=== PATIENT | female | born 1960 | race Caucasian/White ===

== ENCOUNTER 2025-07-22 09:44 | Outpatient (AMB) | payer MEDICARE, OTHER, SELFPAY ==
--- NOTE | 2025-07-22 09:57 | MHC.OFFVIS ---
Intake Visit Reasons: 6M TREMOR Allergies latex (LATEX) Allergy (Unknown, Verified 07/22/25 10:03) RASH Penicillins (PENICILLINS) Allergy (Unknown, Verified 07/22/25 10:03) HIVES Sulfa (Sulfonamide Antibiotics) (SULFA (SULFONAMIDE ANTIBIOTICS)) Allergy (Unknown, Verified 07/22/25 10:03) HIVES Medication List - Last Reconciled 07/22/25 by Linh Fernandez CNP cholecalciferol (vitamin D3) 50 mcg PO DAILY clonazepam (Klonopin) 0.5 mg PO BID PRN 30 days ezetimibe 10 mg PO DAILY omeprazole 20 mg PO DAILY HPI Comments Details: She had COVID for the 4th time at the end of 06/2025. She was scheduled for hysterectomy in 08/2025. Neck was stable. She did not think symptoms were severe and has decided to hold off on Botox treatment for now. Tremors were stable, clonazepam as needed helps. Tremors could be worse with stress. No functional impairment. No difficulty eating, drinking, or swallowing. Sleep was so-so. Her father passed in 01/2022. Daughter had NM at age 36. DIL had a pacemaker and SZ. Problems with her head turning to the right and head tremor that gets worse if she is nervous and upset since 2009. More bothersome, gets neck discomfort, and hard for her to sleep. Waking 2-3x/during night with numbness in both hands (R>L) beginning in 2014. NCV 2016 showed mild CTS on the left and early CTS on right s/p R carpal tunnel release in 2009. Using meloxicam on rare occasion for joint pains from OA, worse with colder weather. 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 Allergy related FERNANDEZ and sinus pressure. [facility] Medical History (Updated 07/22/25 @ 10:02 by Linh Fernandez CNP) Arthritis Hyperactivity of bladder Panic disorder Anxiety Essential tremor Torticollis Carpal tunnel syndrome Surgical History (Updated 07/22/25 @ 10:02 by Linh Fernandez CNP) Status post total left knee replacement History of bladder surgery Review of Systems Const Denies chills, Denies daytime sleepiness, Reports difficulty sleeping, Denies fatigue, Denies fever(s), Denies frequent falls, Reports headache(s), Denies increased appetite, Denies poor appetite, Denies snoring, Denies weakness, Denies weight gain and Denies weight loss Eyes Denies loss of vision ENT Denies vertigo, Denies dizziness, Reports headache(s) and Reports neck pain Card Denies chest pain at rest, Denies chest pain with activity, Denies syncope, Denies leg edema, Denies palpitations, Denies dyspnea and Denies dyspnea on exertion Resp Denies cough, Denies dyspnea, Denies dyspnea on exertion and Denies snoring GI Denies abdominal pain, Denies constipation, Denies heartburn, Denies diarrhea and Denies nausea Denies urinary frequency, Denies urinary incontinence and Denies urinary urgency Musc Denies abnormal gait, Denies back pain, Denies myalgias, Reports arthralgias, Reports neck pain, Denies numbness and Denies tingling Neuro Denies abnormal gait, Denies vertigo, Denies dizziness, Denies syncope, Denies frequent falls, Reports headache(s), Denies lack of coordination, Denies loss of vision, Denies memory loss, Denies numbness, Denies Other visual disturbances, Denies restless legs, Denies seizure-like activity, Denies tingling, Denies paresthesias, Reports tremor(s) and Denies weakness Psych Denies anxiety, Denies depression, Denies auditory hallucinations, Denies memory loss and Denies visual hallucinations Endo Denies fatigue and Denies palpitations Physical Exam Const Other: General Appearance:? normal, in no acute distress. Heart:? S1, S2 normal, no murmurs. Lungs:? clear anteriorly and posteriorly. Musculoskeletal:? normal. Extremities:? no edema. Psych:? alert, oriented, cognitive function intact, cooperative with exam. Neuro Other: Abnormal Neurological Findings:?5 degree torticollis to the left. Head titubation tremor. Mental Status: alert and oriented X 3. Normal attention, orientation, memory, and affect. Cranial Nerves: Pupils are equal, round, and reactive to light. External ocular muscles are intact. Visual huffman are full, no ptosis. Face is symmetrical, no facial weakness or droop. Facial sensations are normal. Tongue protrudes in midline. Palate elevates symmetrically. Shoulder shrugging is normal Motor Examination: Normal muscle tone, bulk and strength. No atrophy or fasciculations. No drift of the extended upper extremities. DTR 2+. Plantars are flexor. Sensory Exam: Normal light touch, temperature, pinprick, vibration, and joint-position sensations. Rhomberg sign is absent. Coordination: No ataxia. No titubation. Gait Exam: Within normal limits. Cerebellar Signs: [id number] is okay. Extrapyramidal System: Tremor as above. No rigidity with normal facial expressions. No bradykinesia. No bradyphrenia. Normal arm swing and posture. No propulsion or retropulsion. Speech: Normal. Results Reviewed Results Reviewed: NCV/EMG UE 07/04/16 MILD CARPAL TUNNEL SYNDROME ON THE LEFT. NORMAL EMG OF THE LEFT C5-T1 INNERVATED MUSCLES. Discussed Botox for her neck but she wants to hold off. Assessment & Plan Assessment & Plan (1) Torticollis: Code(s): M43.6 - Torticollis Category: Medical Plan: She was not interested in Botox at this time. (2) Essential tremor: Code(s): G25.0 - Essential tremor Category: Medical Plan: Continue clonazepam 0.5mg 1 tablet twice a day as needed for tremor #60 for 30 days. Follow up in 6 months or sooner as needed. Coding Level of Care Code Est Pt Level 4 (74530) Diagnoses Torticollis M43.6 Essential tremor G25.0
--- OUTSIDE RECORDS SUMMARY | 2025-07-22 11:21 | XMS_ITS ---
[facility] Name [facility] Organization Unknown Results Test Name/Text Value Interpretation Date Range Source Color Ur Yellow Normal 4 - [facility] Hgb Ur Ql Negative Normal 4 - [facility] Glucose Ur Ql Negative Normal 4 - [facility] Ketones Ur-mCnc Negative Normal 4 - [facility] pH Ur 8.5 pH Abnormal 4 5 - 8 [facility] Sp Gr Ur 1.015 Normal 4 1.005 - 1.03 [facility] Clarity Ur Slightly Cloudy Abnormal 4 - [facility] Leukocyte esterase Ur Ql Strip Negative Normal 4 - [facility] Nitrite Ur Ql Negative Normal 4 - [facility] Prot Ur Strip-mCnc Negative Normal 4 - [facility] PTH-Intact SerPl-mCnc 32.2 pcg/mL Normal 4 10 - 65 [facility] Urate SerPl-mCnc 3.3 mg/dL Normal 4 2.5 - 7 [facility] Mucous Threads UrnS Ql Micro Normal 4 [facility] Ketones Ur-mCnc Negative Normal 4 - [facility] Nitrite Ur Ql Negative Normal 4 - [facility] Bacteria #/area UrnS HPF Normal 4 [facility] pH Ur 7.0 pH Normal 4 5 - 8 [facility] Leukocyte esterase Ur Ql Strip Negative Normal 4 - [facility] Color Ur Yellow Normal 4 - [facility] Clarity Ur Cloudy Abnormal 4 - [facility] Hgb Ur Ql Large Abnormal 4 - [facility] Prot Ur Strip-mCnc Negative Normal 4 - [facility] WBC #/area UrnS HPF 0.0 /HPF Normal 4 0 - 5 [facility] RBC #/area UrnS HPF >20.0 /HPF Above high normal 4 0 - 2 [facility] Glucose Ur Ql Negative Normal 4 - [facility] Squamous Epithelial, Urine 5.0 /HPF Normal 4 0 - 5 [facility] Sp Gr Ur 1.015 Normal 4 1.005 - 1.03 [facility] BUN SerPl-mCnc 20.0 mg/dL Above high normal 06/08/20 2 4 7 - 17 [facility] Anion Gap SerPl-sCnc 6.0 Normal 4 5 - 14 [facility] eGFRcr SerPlBld CKD-EPI 2020 97.0 mL/min/1.73m2 Normal 4 - [facility] Creat SerPl-mCnc 0.68 mg/dL Normal 4 0.5 - 1 [facility] Chloride SerPl-sCnc 99.0 mmol/L Normal 4 98 - 107 [facility] Potassium SerPl-sCnc 3.9 mmol/L Normal 4 3.5 - 5.1 [facility] BUN/Creat SerPl 29.4 Above high normal 02 4 12 - 20 [facility] CO2 SerPl-sCnc 31.0 mmol/L Normal 4 24 - 32 [facility] Calcium SerPl-mCnc 9.6 mg/dL Normal 4 8.4 - 10.2 [facility] Glucose SerPl-mCnc 95.0 mg/dL Normal 4 70 - 199 [facility] Sodium SerPl-sCnc 136.0 mmol/L Normal 4 135 - 145 [facility] Eosinophil/leuk NFr Bld Auto 2.3 % Normal 4 0 - 6 [facility] Neutrophils # Bld Auto 6.54 K/mcL Normal 4 1.8 - 7.8 [facility] MCV RBC Auto 87.1 FL Normal 4 78 - 100 [facility] MCH RBC Qn Auto 29.0 pcg Normal 4 25 - 33 [facility] Basophils/leuk NFr Bld Auto 0.5 % Normal 4 0 - 2 [facility] Monocytes/leuk NFr Bld Auto 6.5 % Normal 4 2 - 12 [facility] Lymphocytes # Bld Auto 2.07 K/mcL Normal 4 1 - 3.2 [facility] Eosinophil # Bld Auto 0.22 K/mcL Normal 4 0 - 0.5 [facility] RBC # Bld Auto 5.8 M/mcL Above high normal 06/08/20 2 4 4.2 - 5.4 [facility] Hct VFr Bld Auto 50.5 % Above high normal 4 37 - 47 [facility] Hgb Bld-mCnc 16.8 g/dL Above high normal 4 12.5 - 16 [facility] WBC # Bld Auto 9.5 K/mcL Normal 4 4 - 10.5 [facility] MCHC RBC Auto-mCnc 33.3 g/dL Normal 4 32 - 36 [facility] Platelet # Bld Auto 405.0 K/mcL Normal 4 150 - 450 [facility] RDW RBC Auto-Rto 14.6 % Normal 4 12.1 - 16.2 [facility] PMV Bld Auto 9.1 FL Normal 4 7.4 - 11.4 [facility] Neutrophils/leuk NFr Bld Auto 68.7 % Normal 4 44 - 74 [facility] Monocytes # Bld Auto 0.62 K/mcL Normal 4 0 - 0.8 [facility] Lymphocytes/leuk NFr Bld Auto 21.7 % Normal 4 20 - 48 [facility] Basophils # Bld Auto 0.05 K/mcL Normal 4 0 - 0.2 [facility] BILIRUB DIRECT SERPL MCNC 0.0 mg/dL Normal 3 0 - [facility] BILIRUB [facility] MCNC 0.3 mg/dL Normal 3 0.3 - 1 [facility] D DIMER DDU PPP EIA MCNC 336.0 ng/mL DDU Above high normal 3 - 231 [facility] BNP BLD MCNC 9.0 pg/mL Normal 3 0 - 100 [facility] Glomerular filtration rate/1.73 sq M. predicted 100.0 Normal 3 60 - [facility] CALCIUM SERPL MCNC 9.3 mg/dL Normal 3 8.4 - 10.2 [facility] CHLORIDE SERPL SCNC 98.0 mmol/L Normal 3 98 - 107 [facility] POTASSIUM SERPL SCNC 3.7 mmol/L Normal 3 3.5 - 5.1 [facility] ANION GAP SERPL SCNC 11.0 mmol/L Normal 3 5 - 14 [facility] SODIUM SERPL SCNC 135.0 mmol/L Normal 3 135 - 145 [facility] BUN SERPL MCNC 15.0 mg/dL Normal 3 7 - 17 [facility] HCO3 SER SCNC 26.0 mmol/L Normal 3 24 - 32 [facility] CREAT SERPL MCNC 0.6 mg/dL Normal 3 0.5 - 1 [facility] GLUCOSE SERPL MCNC 102.0 mg/dL Normal 3 70 - 199 [facility] LIPASE SERPL CCNC 12.0 U/L Normal 3 11 - 82 [facility] AMYLASE SERPL CCNC 35.0 U/L Normal 3 29 - 103 [facility] LDH SERPL L TO P CCNC 257.0 U/L Above high normal 3 125 - 220 [facility] ALP SERPL-CCNC 72.0 U/L Normal 3 34 - 104 [facility] AST SERPL CCNC 36.0 U/L Normal 3 5 - 40 [facility] ALT SERPL CCNC 24.0 U/L Normal 3 7 - 52 [facility] LYMPHOCYTES NO. BLD AUTO 1.7 K/uL Normal 3 1 - 3.2 [facility] IMMATURE GRANULOCYTE, PERCENT 0.2 % Normal 3 0 - 1 [facility] MONOCYTES NO. BLD AUTO 1.0 K/uL Above high normal 3 0 - 0.8 [facility] WBC NO. BLD AUTO 5.2 K/uL Normal 3 4 - 10.5 [facility] NEUTROPHILS NO. BLD AUTO 2.5 K/uL Normal 3 1.8 - 7.8 [facility] HGB BLD MCNC 16.1 g/dL Above high normal 3 12.5 - 16 [facility] MCHC RBC AUTO MCNC 32.9 g/dL Normal 3 32 - 36 [facility] IMMATURE GRANULOCYTE, ABSOLUTE 0.01 k/uL Normal 3 - 0.1 [facility] EOSINOPHIL NFR BLD AUTO 0.4 % Normal 3 0 - 6 [facility] PLATELET NO. BLD AUTO 361.0 K/uL Normal 3 150 - 450 [facility] MCH RBC QN AUTO 28.9 pg Normal 3 25 - 33 [facility] PMV BLD AUTO 9.3 fL Normal 3 7.4 - 11.4 [facility] RBC NO. BLD AUTO 5.57 M/uL Above high normal 3 4.2 - 5.4 [facility] HCT VFR BLD AUTO 48.9 % Above high normal 3 37 - 47 [facility] EOSINOPHIL NO. BLD AUTO 0.0 K/uL Normal 3 0 - 0.5 [facility] BASOPHILS IN BLOOD BY AUTOMATED COUNT 0.0 K/uL Normal 3 0 - 0.2 [facility] NUCLEATED RBC 0.0 % Normal 3 0 - 1 [facility] LYMPHOCYTES NFR BLD AUTO 32.9 % Normal 3 20 - 48 [facility] MCV RBC AUTO 87.8 fL Normal 3 78 - 100 [facility] RDW RBC AUTO RTO 15.1 % Normal 3 12.1 - 16.2 [facility] BASOPHILS NFR BLD AUTO 0.4 % Normal 3 0 - 2 [facility] NEUTROPHILS NFR BLD AUTO 47.0 % Normal 3 44 - 74 [facility] MONOCYTES NFR BLD AUTO 19.1 % Above high normal 3 2 - 12 [facility] Service [facility] XXX-Imp Cepheid GeneXpert (RT-PCR) [facility] Normal 3 [facility] RSV RNA Nph Ql BHAKTI+non-probe NEGATIVE Normal 3 [facility] FLUAV RNA Nph Ql BHAKTI+non-probe POSITIVE Abnormal 3 [facility] FLUBV RNA Nph Ql BHAKTI+non-probe NEGATIVE Normal 3 [facility] SPECIMEN SOURCE XXX NASOPHARYNGEAL Normal 3 [facility] Procalcitonin SerPl IA-mCnc 0.05 ng/mL Above high normal 3 - 0.05 [facility] BNP BLD MCNC 24.0 pg/mL Normal 3 0 - 100 [facility] NEUTROPHILS NO. BLD AUTO 6.7 K/uL Normal 3 1.8 - 7.8 [facility] EOSINOPHIL NO. BLD AUTO 0.2 K/uL Normal 3 0 - 0.5 [facility] PLATELET NO. BLD AUTO 415.0 K/uL Normal 3 150 - 450 [facility] LYMPHOCYTES NFR BLD AUTO 25.9 % Normal 3 20 - 48 [facility] IMMATURE GRANULOCYTE, ABSOLUTE 0.04 k/uL Normal 3 - 0.1 [facility] EOSINOPHIL NFR BLD AUTO 1.8 % Normal 3 0 - 6 [facility] RDW RBC AUTO RTO 16.1 % Normal 3 12.1 - 16.2 [facility] HCT VFR BLD AUTO 47.5 % Above high normal 3 37 - 47 [facility] BASOPHILS NFR BLD AUTO 0.5 % Normal 3 0 - 2 [facility] RBC NO. BLD AUTO 5.43 M/uL Above high normal 3 4.2 - 5.4 [facility] LYMPHOCYTES NO. BLD AUTO 2.7 K/uL Normal 3 1 - 3.2 [facility] NUCLEATED RBC 0.0 % Normal 3 0 - 1 [facility] NEUTROPHILS NFR BLD AUTO 63.2 % Normal 3 44 - 74 [facility] MCHC RBC AUTO MCNC 32.6 g/dL Normal 3 32 - 36 [facility] MONOCYTES NFR BLD AUTO 8.2 % Normal 3 2 - 12 [facility] WBC NO. BLD AUTO 10.5 K/uL Normal 3 4 - 10.5 [facility] BASOPHILS IN BLOOD BY AUTOMATED COUNT 0.1 K/uL Normal 3 0 - 0.2 [facility] MCV RBC AUTO 87.5 fL Normal 3 78 - 100 [facility] IMMATURE GRANULOCYTE, PERCENT 0.4 % Normal 3 0 - 1 [facility] MONOCYTES NO. BLD AUTO 0.9 K/uL Above high normal 3 0 - 0.8 [facility] MCH RBC QN AUTO 28.5 pg Normal 3 25 - 33 [facility] PMV BLD AUTO 8.8 fL Normal 3 7.4 - 11.4 [facility] HGB BLD MCNC 15.5 g/dL Normal 3 12.5 - 16 [facility] CHLORIDE SERPL SCNC 104.0 mmol/L Normal 3 98 - 107 [facility] GLUCOSE SERPL MCNC 107.0 mg/dL Normal 3 70 - 199 [facility] ANION GAP SERPL SCNC 9.0 mmol/L Normal 3 5 - 14 [facility] HCO3 SER SCNC 26.0 mmol/L Normal 3 24 - 32 [facility] POTASSIUM SERPL SCNC 4.4 mmol/L Normal 3 3.5 - 5.1 [facility] BUN SERPL MCNC 20.0 mg/dL Above high normal 07/25/20 2 3 7 - 17 [facility] SODIUM SERPL SCNC 139.0 mmol/L Normal 3 135 - 145 [facility] Glomerular filtration rate/1.73 sq M. predicted 105.0 Normal 3 60 - [facility] CALCIUM SERPL MCNC 10.2 mg/dL Normal 3 8.4 - 10.2 [facility] CREAT SERPL MCNC 0.5 mg/dL Normal 3 0.5 - 1 [facility] D DIMER DDU PPP EIA MCNC 300.0 ng/mL DDU Above high normal 3 - 231 [facility] History of Medication Use Medication Directions Dispensed Refills Start Date End Date Stat celecoxib (CeleBREX) 100 mg capsule Take 1 capsule (100 mg total) by mouth 2 (two) times a day. 01/29/2025 active celecoxib (CeleBREX) 100 mg capsule Take 1 capsule (100 mg total) by mouth 2 (two) times a day. 01/29/2025 active tamsulosin (FLOMAX) 0.4 mg 24 hr capsule Take 1 capsule (0.4 mg total) by mouth 1 (one) time each day. Capsules should be taken 30 minutes following the same meal each day. 01/29/2025 active ezetimibe (ZETIA) 10 mg tablet Take 1 tablet (10 mg total) by mouth 1 (one) time each day. 01/05/2025 active ezetimibe (ZETIA) 10 mg tablet Take 1 tablet (10 mg total) by mouth 1 (one) time each day. 01/05/2025 active vibegron (GEMTESA) 75 mg tablet tablet Take 1 tablet (75 mg total) by mouth 1 (one) time each day. 11/06/2024 active omeprazole (PriLOSEC) [address] capsule Take 1 capsule (20 mg total) by mouth 1 (one) time each day before breakfast. Do not crush or chew. 10/09/2024 active omeprazole (PriLOSEC) [address] capsule Take 1 capsule (20 mg total) by mouth 1 (one) time each day before breakfast. Do not crush or chew. 10/09/2024 active cholecalciferol (VITAMIN D-3) 50 mcg (2,000 unit) capsule Take 1 capsule (2,000 Units total) by mouth 1 (one) time each day. 10/02/2024 active cholecalciferol (VITAMIN D-3) 50 mcg (2,000 unit) capsule Take 1 capsule (2,000 Units total) by mouth 1 (one) time each day. 10/02/2024 active rosuvastatin (CRESTOR) 5 mg tablet Take 1 tablet (5 mg total) by mouth 1 (one) time each day. 10/02/2024 active rosuvastatin (CRESTOR) 5 mg tablet Take 1 tablet (5 mg total) by mouth 1 (one) time each day. 10/02/2024 active vibegron (GEMTESA) 75 mg tablet tablet Take 1 tablet (75 mg total) by mouth 1 (one) time each day. 07/22/2024 5 active varenicline (CHANTIX TOSHIA) 0.5 mg (11)- 1 mg (42) tablet Use as directed on package instructions, try to quit smoking after 1 week. 06/10/2024 active varenicline (CHANTIX TOSHIA) 0.5 mg (11)- 1 mg (42) tablet Use as directed on package instructions, try to quit smoking after 1 week. 06/10/2024 active tamsulosin (FLOMAX) 0.4 mg 24 hr capsule Take 1 capsule (0.4 mg total) by mouth 1 (one) time each day for 14 days. Capsules should be taken 30 minutes following the same meal each day. 06/08/2024 4 active iopamidoL (ISOVUE-370) 370 mg iodine /mL (76 %) injection 100 mL 100 mL, intravenous, Once in imaging, Starting on 06/08/24 at 0711, For 1 dose 06/08/2024 4 completed mometasone (ELOCON) 0.1 % cream Apply to rash on chest twice daily as needed for up to 10 days. 04/29/2024 active omeprazole (PriLOSEC) [address] capsule Take 1 Capsule by mouth daily for 360 days. 01/10/2024 5 active omeprazole (PriLOSEC) [address] capsule Take 1 Capsule by mouth daily for 360 days. 01/10/2024 active rosuvastatin (CRESTOR) 5 mg tablet Take 1 Tablet by mouth daily. 08/27/2023 active rosuvastatin (CRESTOR) 5 mg tablet Take 1 Tablet by mouth daily. 08/27/2023 active albuterol HFA (PROAIR HFA ; PROVENTIL HFA ; VENTOLIN HFA) 90 mcg/actuation inhaler Inhale 2 Puffs into the lungs every 4 hours as needed for Cough or Wheezing. 08/08/2023 active albuterol HFA (PROAIR HFA ; PROVENTIL HFA ; VENTOLIN HFA) 90 mcg/actuation inhaler Inhale 2 Puffs into the lungs every 4 hours as needed for Cough or Wheezing. 08/08/2023 active clonazePAM (KlonoPIN) 0.5 mg tablet TAKE 1 TABLET BY MOUTH TWICE A DAY NEEDED FOR ANXIETY 08/10/2017 active clonazePAM (KlonoPIN) 0.5 mg tablet TAKE 1 TABLET BY MOUTH TWICE A DAY NEEDED FOR ANXIETY 08/10/2017 active meloxicam (MOBIC) 7.5 mg tablet Take 1 Tablet by mouth daily as needed. active TURMERIC ORAL Take 4 drops by mouth 1 (one) time each day. active TURMERIC ORAL Take 4 drops by mouth 1 (one) time each day. active turmeric root extract 500 mg capsule Take by mouth daily. active turmeric root extract 500 mg capsule Take by mouth daily. active Allergies Allergen Reaction Severity Comment Documented Date Source Statu s ROSUVASTATIN PAIN Joint pain 01/20/2025 [facility] ac tive SULFUR 09/04/2024 [facility] active ATORVASTATIN OTHER 09/17/2019 [facility] activ e ADALIMUMAB RASH 07/03/2017 [facility] active MORPHINE SULFATE RASH Nausea and vomiting 02/09/2010 [facility] active NYLON 08/15/2009 [facility] active LATEX 06/26/2008 [facility] active SULFACETAMIDE SODIUM NAUSEA AND VOMITING 11/19/2006 [facility] active PENICILLINS RASH 07/26/2005 [facility] active Problems Problem Status Onset Date Problem Type Date of Resolution Source Shoulder arthritis active 2010-02-18 ProblemAct [facility] Skin growth active 2024-09-04 ProblemAct [facility] BMI 25.0-25.9,adult active 2024-09-04 ProblemAct [facility] Vitamin D deficiency active 2024-09-04 ProblemAct [facility] Hyperlipidemia active 2005-11-29 ProblemAct [facility] Myalgia active 2024-09-04 ProblemAct [facility] Nephrolithiasis active 2024-06-[address] [facility] Panic disorder active 2007-10-19 ProblemAct [facility] Overweight active 2024-09-04 ProblemAct [facility] H Pain in both thighs active 2024-09-04 ProblemAct [facility] Multiple closed fractures of ribs of left side active 2024-09-04 ProblemAct [facility] Tobacco dependency active 2021-12-12 ProblemAct [facility] GERD (gastroesophageal reflux disease) active 2009-04-30 ProblemAct [facility] Encounter for smoking cessation counseling active 2024-09-04 ProblemAct [facility] Erythrocytosis active 2024-06-10 ProblemAct [facility] Liver masses active 2009-04-05 ProblemAct [facility] Menopause active 2024-09-04 ProblemAct [facility] Osteoporosis active 2024-12-15 ProblemAct [facility] Inflammatory arthritis active 2017-02-16 ProblemAct [facility] Trigger finger, acquired active 2024-06-18 ProblemAct [facility] Osteoarthritis of left knee active 2018-11-15 ProblemAct [facility] Carpal tunnel syndrome, left active 2018-04-01 ProblemAct [facility] Urinary frequency active EncounterDiagnosisAct [facility] Urgency of urination active EncounterDiagnosisA ct [facility] Immunizations Vaccine Date Source Lot Number Status Influenza Quadravalent, MDCK , 0.5ml, preservative free (Flucelvax) 6mo and older 06/02/2019 [facility] [id number] completed Influenza Quadravalent, MDCK , 0.5ml, preservative free (Flucelvax) 6mo and older 07/03/2018 [facility] 1433 80 completed Pneumococcal polysaccharide 23 valent (Pneumovax 23) 2yo and older 07/03/2018 [facility] [id number] com pleted Influenza Quadravalent, MDCK , 0.5ml, with preservative (Flucelvax) 6mo and older 07/12/2017 [facility] [id number] completed Influenza trivalent, 0.5mL, preservative free (Fluarix; FluLaval; Fluzone) ages 6mo and older (Afluria) 3 years and older 06/02/2016 [facility] [id number] completed Influenza trivalent, 0.5mL, preservative free (Fluarix; FluLaval; Fluzone) ages 6mo and older (Afluria) 3 years and older 06/27/2013 [facility] [id number] completed Tdap Tetanus diptheria acell ular pertussis (Boostrix; Adacel) 7yo and older 02/09/2010 [facility] completed PPD Test 11/10/2003 [facility] completed Td Tetanus diptheria (Tdvax) 7yo and older 11/27/1999 [facility] [id number] completed Encounters Encounter Type Encounter Reason Primary Diagnosis Location Date Ambulatory Calculus of kidney Calculus of kidney [facility] 02/26/2025 Ambulatory Calculus of kidney Calculus of kidney [facility] 01/29/2025 Ambulatory Calculus of kidney Calculus of kidney [facility] 11/17/2024 Ambulatory Follow-up Overactive bladder [facility] 11/06/2024 Ambulatory Calculus of kidney Calculus of kidney [facility] 07/22/2024 Ambulatory Calculus of kidney Calculus of kidney [facility] 07/07/2024 Emergency cyst Dysuria [facility] 06/27/2024 Ambulatory Calculus of kidney Calculus of kidney [facility] 06/24/2024 Emergency BLOOD IN URINE [facility] 06/08/2024 Emergency Influenza due to unidentified influenza virus with other respiratory manifestations Influenza due to unidentified influenza virus with other respiratory manifestations [facility] 08/02/2023 Emergency Other chest pain Other chest pain [facility] 07/24/2023 Emergency Acute upper respiratory infection, unspecified Acute upper respiratory infection, unspecified [facility] 04/16/2023 Emergency COVID-19 [facility] 02/18/2023 Care Team Organization Name Specialty Phone Email Start Date End Da te [facility] 06/26/2024 [facility] 06/24/2024 [facility] 06/08/2024 [facility] 06/08/2024 [facility] 08/26/2023 [facility] GERRY FARMER Primary Care 02/1802/18/2023
--- OUTSIDE RECORDS SUMMARY | 2025-07-22 11:22 | XMS_ITS | Clinical Summary ---
Author Organization [facility] Prior to 01/03/[address] [place] [id number] Care Team Providers Care [employer] Name Role Phone Mahamed Ahn MD Primary Care Provider [phone] Allergies Active Allergy Reactions Criticality Noted Date Comments Atorvastatin 09/27/2020 Myalgia and Joint Pain Adalimumab Dermatitis,Rash Low 09/27/2020 Latex 09/27/2020 Morphine Nausea And Vomiting,Dermatitis,Enoc h Low 09/27/2020 Nylon 09/27/2020 Penicillins Dermatitis,Rash Low 09/27/2020 Sulfa Antibiotics Nausea And Vomiting Medications Medication Sig Dispensed Refills Start Date End Date Status clonazePAM (KlonoPIN) 0.25 mg split tablet Take 2 split tablet (0.5 mg total) by mouth 2 (two) times a day as needed for anxiety. 0 Active meloxicam (MOBIC) 7.5 MG tablet Take 7.5 mg by mouth daily. 0 Active rosuvastatin (CRESTOR) tablet 5 mg Take 1 tablet (5 mg total) by mouth daily. 0 Active HYDROcodone-homatropine (Hycodan) 5-1.5 MG/5ML solution Take 5 mL by mouth every 8 (eight) hours as needed (cough). 120 mL 0 08/02/2023 Active ondansetron (ZOFRAN-ODT) 8 MG disintegrating tablet Take 1 tablet (8 mg total) by mouth every 8 (eight) hours as needed for nausea. 20 tablet 0 08/02/2023 Active Active Problems Problem Noted Date Diagnosed Date Hemangioma of liver 12/12/2021 Toxic effect of carbon monoxide, unintentional 0 12/12/2021 Tobacco use disorder 12/12/2021 Thrombocytosis, unspecified 11/21/2021 Shoulder arthritis 10/10/2020 Panic disorder 10/10/2020 Osteoarthritis of left knee 10/10/2020 HLD (hyperlipidemia) 10/10/2020 GERD (gastroesophageal reflux disease) Carpal tunnel syndrome, left 10/10/2020 History of seronegative inflammatory arthritis 0 10/10/2020 Polycythemia, secondary 09/28/2020 Family History Medical History Relation Name Comments No Sig Med Hx Brother Prostate cancer Father Leukemia Maternal Aunt Breast cancer Maternal Grandmother Cancer Mother Breast cancer Sister 1 Yue Lung cancer Sister 2 Kayla Relation Name Status Comments Brother Father Alive Maternal Aunt (Age 34) Maternal Grandmother (Age 80) Br east cancer age 32, in her 80s Mother (Age 55) Cancer inv olving spine Sister 1 Yue Alive Double mastecto my for unilateral breast cancer. Sister 2 Kayla Alive Social History Tobacco Use Types Packs/Day Years Used Date Smoking Tobacco: Some Days Smokeless Tobacco: Never Alcohol Use Standard Drinks/Week Comments No 0 (1 standard drink = 0.6 oz pur e alcohol) Sex and Gender Information Value Date Recorded Sex Assigned at Female 11/09/2020 7:42 PM EDT Gender Identity Female 02/18/2023 11:50 AM EDT Sexual Orientation Not on file Job Start Date Occupation Industry Not on file Not on file Not on file Last Filed Vital Signs Vital Sign Reading Time Taken Comments Blood Pressure 114/62 08/02/2023 8:01 PM EST Pulse 69 08/02/2023 8:01 PM EST Temperature 36.6 C (97.8 F) 08/02/2023 6:45 PM EST Respiratory Rate 18 08/02/2023 8:01 PM EST Oxygen Saturation 96% 08/02/2023 8:01 PM EST Inhaled Oxygen Concentration - - Weight 73.9 kg (163 lb) 08/02/2023 11:45 AM EST Height 170.2 cm (5' 7 ) 08/02/2023 11:45 AM EST Body Mass Index 25.53 08/02/2023 11:45 AM EST Plan of Treatment Health Maintenance Due Date Last Done Comments Hepatitis C Screening 1958 Depression Screening 1970 BMI Counseling 1976 Preventative Health Evaluation 1976 Tobacco Cessation Counseling 1976 Colon Cancer Screening (Colonoscopy) 2003 Breast Cancer Screening (Mammogram) 2008 Shingrix-Zoster Vaccine (1 of 2) 2008 Pneumococcal Vaccine (2 of 2 - PCV) 07/03/2019 07/03/2018 DTap / Tdap / Td (2 - Td or Tdap) 02/10/2020 02/09/2010 Fall Risk Assessment 2023 Osteoporosis Screening (DEXA Scan) 2023 COVID-19 Vaccine ( season) 2025 01/04/2021, 12/14/2020 Influenza Vaccine (#1) 2025 9, 07/03/2018, 07/12/2017, Additional history exists RSV Adult > 60+ Yrs or (1 - 1-dose 75+ series) 2033 Hepatitis B Vaccines Aged Out No long er eligible based on patient's age to complete this topic RSV Ped < 20 months Aged Out No longe r eligible based on patient's age to complete this topic Care Teams Superintendent [employer] Relationship Specialty Start Date End Date Mahamed Ahn MD PCP - General Internal Medicine 09/02/20
--- OUTSIDE RECORDS SUMMARY | 2025-07-22 11:22 | XMS_ITS | Clinical Summary ---
Author Organization 175 [facility] Address [address] [place] [address] Phone Care Team Providers Care Experimental Display Builder Name Role Phone Mahamed Ahn MD Primary Care Provider [phone] Allergies Active Allergy Reactions Criticality Noted Date Comments Adalimumab Rash 07/03/2017 Atorvastatin Other 09/17/2019 Latex 06/26/2008 Morphine Sulfate Rash 02/09/2010 Nausea and vomiting Nylon 08/15/2009 Penicillins Rash 07/26/2005 Rosuvastatin Pain 01/20/2025 Joint pain Sulfacetamide Sodium Nausea And Vomiting 2006 Sulfur 09/04/2024 Medications albuterol HFA (PROAIR HFA ; PROVENTIL HFA ; VENTOLIN HFA) 90 mcg/actuation inhaler Inhale 2 Puffs into the lungs every 4 hours as needed for Cough or Wheezing. 4 Active clonazePAM (KlonoPIN) 0.5 mg tablet TAKE 1 TABLET BY MOUTH TWICE A DAY NEEDED FOR ANXIETY 8 Active omeprazole (PriLOSEC) [address] capsule Take 1 capsule (20 mg total) by mouth 1 (one) time each day before breakfast. Do not crush or chew. 90 capsule 3 5 10/05/19 26 Active TURMERIC ORAL Take 4 drops by mouth 1 (one) time each day. Active CALCIUM-VITAMIN D3-MAGNESIUM ORAL Take by mouth. Activ e varenicline tartrate (CHANTIX TOSHIA) 0.5 mg (11)- 1 mg (42) tablet Use as directed on package instructions, try to quit smoking after 1 week. 53 tablet 3 5 Active varenicline tartrate (CHANTIX TOSHIA) 0.5 mg (11)- 1 mg (42) tablet Take 0.5 mg by mouth 1 (one) time each day for 3 days (days 1-3), THEN 0.5 mg 2 (two) times a day for 4 days (days 4-7), THEN 1 mg 2 (two) times a day for 12 weeks. 53 tablet 1 5 Active ezetimibe (ZETIA) 10 mg tablet Take 1 tablet (10 mg total) by mouth 1 (one) time each day. 90 each 1 5 10/14/19 26 Active ezetimibe (ZETIA) 10 mg tablet Take 1 tablet (10 mg total) by mouth 1 (one) time each day. 90 each 1 5 10/14/19 26 Active cholecalciferol (VITAMIN D-3) 50 mcg (2,000 unit) capsuleIndicati ons:Vitamin D deficiency Take 1 capsule (2,000 Units total) by mouth 1 (one) time each day. 90 each 3 5 04/16/20 26 Active clindamycin (CLEOCIN) 300 mg capsule TAKE 2 CAPSULES BY MOUTH 1 HOUR BEFORE DENTAL APPOINTMENT DIRECTED 5 Active hydrocortisone 2.5 % cream 5 Active nystatin (MYCOSTATIN) cream APPLY TWICE DAILY TO [facility]MARY - WEAN OFF WHEN IMPROVED 5 Active Afrin, oxymetazoline, 0.05 % nasal spray INSTILL 2 SPRAYS INTRANASALLY EVERY 12 HOURS FOR 3 DAYS 5 Active Active Problems Problem Noted Date Diagnosed Date Osteoporosis 12/15/2024 Pain in both thighs 09/04/2024 Vitamin D deficiency 09/04/2024 Multiple closed fractures of ribs of left side 0 09/04/2024 Myalgia 09/04/2024 Trigger finger, acquired 06/18/2024 Nephrolithiasis 06/10/2024 Erythrocytosis 06/10/2024 Tobacco dependency 12/12/2021 Osteoarthritis of left knee 11/15/2018 Overview (05/23/2024): Due to ongoing inflammatory arthritis Carpal tunnel syndrome, left 04/01/2018 Overview (05/23/2024): Mild on nerve conduction studies, June 2016 at 's office Inflammatory arthritis 02/16/2017 Overview (05/23/2024): Left knee. Large effusion - joint fluid with 15,000 WBC. Treated with IA steroids, methotrexate(nausea-stopped), Humira(rash-stopped). Xeljanz 06/22 - stopped in 2016 due to skin infection Xeljanz restarted September 2017 Joint fluid Aug 2016 31,470 WBC, uric acid crystals seen Summer 2019 - afraid to take Xeljanz due to COVID 19 risks Shoulder arthritis 02/18/2010 Overview (05/23/2024): Positive Lyme Western blots with IgM bands 23 & 41 positive but no IgG bands positive, so false positives. Received 3 courses of doxycycline - no response GERD (gastroesophageal reflux disease) 9 Liver masses 04/05/2009 Panic disorder 10/19/2007 Hyperlipidemia 11/29/2005 Resolved Problems Problem Noted Date Diagnosed Date Resolved Date BMI 25.0-25.9,adult 09/04/2024 04/01/20 25 Skin growth 09/04/2024 04/01/2025 Menopause 09/04/2024 04/01/2025 Encounter for smoking cessation counseling 09/04/2024 04/01/2025 Encounters Date Type Department Care Team Description 07/09/2025 9:50 AM EST Office Visit Gastroenterology - [address] [facility] [address] [place] [phone] Iris Nayak PA Gastroesophageal reflux disease with esophagitis without hemorrhage (Primary Dx); Acute superficial gastritis without hemorrhage; Schatzki ring of distal esophagus; NAFLD (nonalcoholic fatty liver disease) 06/23/2025 1:19 PM EST - 06/23/2025 11:59 PM EST Hospital Encounter [facility] CT Scan [address] [place] [address] Encounter for screening for malignant neoplasm of respiratory organs; Nicotine dependence, cigarettes, uncomplicated Discharge Disposition: Home or Self Care 06/23/2025 1:15 PM EST Office Visit Lung Screening Program - [place] [address] [facility] [address] [place] [phone] Della Vinson NP Encounter for screening for malignant neoplasm of lung in current smoker with 30 pack year history or greater (Primary Dx) 05/26/2025 10:30 AM EDT Office Visit Pulmonology - [place] [address] [facility] [address] [place] [address] Laureen Gutierres MD Chronic bronchitis, unspecified chronic bronchitis type (CMS/HCC V24, CMS/HCC V28) (Primary Dx); Family history of lung cancer; Ex-smoker; Lung nodules from Last 3 Months Immunizations Immunization Administration Dates Next Due Influenza Quadravalent, MDCK , 0.5ml, preservative free (Flucelvax) 6mo and older 06/02/2019,07/03/2018 Influenza Quadravalent, MDCK , 0.5ml, with preservative (Flucelvax) 6mo and older 07/12/2017 Influenza trivalent, 0.5mL, preservative free (Fluarix; FluLaval; Fluzone) ages 6mo and older (Afluria) 3 years and older 06/02/2016,06/27/2013 PPD Test 11/10/2003 Pneumococcal polysaccharide 23 valent (Pneumovax 23) 2yo and older 07/03/2018 Td Tetanus diptheria (Tdvax) 7yo and older 11/26 Tdap Tetanus diptheria acell ular pertussis (Boostrix; Adacel) 7yo and older 02/09/2010 Surgical History Surgery Date Site/Laterality Comments KNEE ARTHROSCOPY W/ MENISCAL REPAIR 07/23/2017 Left PROCEDURE:KNEE ARTHROSCOPY W/ MENISCAL REPAIR COLONOSCOPY PROCEDURE:COLONOSCOPY CARPAL TUNNEL RELEASE 2004 Right PROCEDURE:CARPAL TUNNEL RELEASE BREAST LUMPECTOMY 1989 Left PROCEDURE:BREAST LUMPECTOMY APPENDECTOMY PROCEDURE:APPENDECTOMY TOTAL KNEE ARTHROPLASTY 06/2020 Left PROCEDURE:REPLACEMENT TOTAL KNEE APPENDECTOMY age 14 PROCEDURE: HISTORICAL APPENDECTOMY CARPAL TUNNEL RELEASE R, '05 PROCEDURE: HISTORICAL CARPAL TUNNEL REL COLONOSCOPY 03/17/10 PROCEDURE: HISTORICAL COLONOSCOPY; COMMENT: normal; repeat in ten years OTHER SURGICAL HISTORY April 2012 PROCEDURE: LA SURGICAL ARTHROSCOPY SHOULDER LMTD DBRDMT 08/07; COMMENT: Rotator cuff decompression, synovitis found. BREAST BIOPSY Left PROCEDURE: BX BREAST; PERC NEEDLE CORE W/IMAG GUID; COMMENT: lt. breast bx.-benign BREAST LUMPECTOMY Left PROCEDURE: HISTORICAL BREAST LUMPECTOMY; COMMENT: b9 KNEE SURGERY 07/23/2017 Left PROCEDURE: HISTORICAL KNEE SURGERY; COMMENT: Dr Miranda, meniscal repair. Biopsy tissue neg for RA Medical History Medical History Date Comments HLD (hyperlipidemia) DX:HLD (hyp erlipidemia) Panic disorder DX:Panic disorde r GERD (gastroesophageal reflux disease) DX:GERD (gastroesophageal reflux disease) Liver masses DX:Liver masses Shoulder arthritis DX:Shoulder a rthritis Osteoarthritis of left knee DX:O steoarthritis of left knee Carpal tunnel syndrome, left DX: Carpal tunnel syndrome, left Inflammatory arthritis DX:Inflam matory arthritis Other and unspecified hyperlipidemia 11/29/2005 DX:Other and unspecified hyperlipidemia Panic disorder 10/19/2007 DX:Panic disorde r GERD (gastroesophageal reflux disease) 04/30/2009 DX:GERD (gastroesophageal reflux disease) Gout of left knee 08/29/2017 DX:Gout of lef t knee Covid-19 DX:COVID-19 Joint pain Family History Medical History Relation Name Comments No Known Problems Brother No Known Problems Daughter Arthritis Father hip Prostate cancer Father Breast cancer Maternal Grandmother 60s Glaucoma Maternal Grandmother 60s Cancer Mother Colon cancer Mother . Leukemia Mother's Sister Breast cancer Mother's side 1 m cousin 40 cousin Other: ca thyroid Mother's side 2 Aunt Arthritis Paternal Grandmother Breast cancer Sister 1 Yue Cancer Sister 1 Yue bladder, cancer Lung cancer Sister 2 Kayla Breast cancer Sister 3 46 No Known Problems Son Relation Name Status Comments Aunt (Age 34) mother's s ister of Leukemia Brother Alive healthy Daughter Alive Father Prostate CA Maternal Grandmother 60s (Age 80s) B reast CA dx'd age 32 Mother (Age 55) unknown. H x diverticulitis, spinal CA. Mother's Sister (Age 34) Mother's side 1 m cousin 40 Alive Mother's side 2 Paternal Grandmother Sister 1 Yue Alive Double mastecto my for unilateral breast cancer. Sister 2 Kayla Alive Sister 3 46 Alive Yue,breast CA 1 side, had double mastectomy age48 Sister 4 Alive Kayla Lung can cer, smoker Son Alive Social History Tobacco Use Types Packs/Day Years Used Date Smoking Tobacco: Some Days Cigarettes 0.5 48 Started: 1977 Passive Smoke Exposure: Current Smokeless Tobacco: Never Tobacco Cessation:Ready to Q uit: Not Asked; Counseling Given: Not Answered Alcohol Use Standard Drinks/Week Comments No 0 (1 standard drink = 0.6 oz pur e alcohol) Housing Instability Answer Date Recorde d Are you worried that in the next 2 months you may not have stable housing? No 06/17/2024 Food Access & Nutrition Answer Date Rec orded Do you have access to a vari ety of food including fruits and vegetables? Yes 06/17/2024 Health Literacy Answer Date Recorded How often do you need to hav e someone help you when you read instructions, pamphlets, or other written material from your doctor or pharmacy? Never 06/17/2024 Caregiver: How often do you need to have someone help you when you read instructions, pamphlets, or other written material from your doctor or pharmacy? Not on file 06/17/2024 Financial Risk Answer Date Recorded How hard is it for you to pa y for the very basics like food, housing, medical care, and air conditioning / heating? Very hard 06/17/2024 Transportation Answer Date Recorded Has the lack of transportati on kept you from meetings, work, or from getting things needed for daily living? No Has the lack of transportati on kept you from medical appointments or from getting medications? No 06/17/2024 Social Isolation Answer Date Recorded How often do you feel lonely or isolated from th ose around you? Never 06/17/2024 Food Risk Answer Date Recorded Within the past 12 months we worried whether our food would run out before we got money to buy more. Never true 06/17/2024 Within the past 12 months th e food we bought just didn't last and we didn't have money to get more. Never true 06/17/2024 Dependent Care Answer Date Recorded Do you need help finding or paying for care for your loved ones. For example, child psychometrist or elderly care for an older adult? No 06/17/2024 Education Answer Date Recorded Do you think completing more education or training, like finishing a GED, going to college, or learning a trade, would be helpful for you? No 06/17/2024 Employment and Income Answer Date Recor ded During the last four weeks, have you been actively looking for work? No 06/17/2024 Living Situation Answer Date Recorded What is your living situation? Unrecognized valu e 06/17/2024 Comments No Sex and Gender Information Value Date Recorded Sex Assigned at Female 06/26/2024 8:51 AM EST Legal Sex Female 8:37 AM EST Gender Identity Female 06/26/2024 8:51 AM EST Sexual Orientation Straight 06/26/2024 8: 51 AM EST Obstetrics History Para Term AB IAB SAB Ectopic Multiple Livin g Live Births 2 2 2 2 Date Outcome GA Total Labor Labor/2nd/3rd Weight Sex Type Anes PTL Nina A1 A5 Name Clin Term Term Last Filed Vital Signs Vital Sign Reading Time Taken Comments Blood Pressure 115/64 05/26/2025 10:13 AM EDT Pulse 64 05/26/2025 10:13 AM EDT Temperature 36.7 C (98.1 F) 06/23/2025 1:11 PM EST Respiratory Rate 20 02/02/2025 1:02 PM EDT Oxygen Saturation 98% 05/26/2025 10:13 AM EDT Inhaled Oxygen Concentration - - Weight 76 kg (167 lb 9.6 oz) 07/09/2025 9:58 AM EST Height 170.2 cm (5' 7 ) 07/09/2025 9:58 AM EST Body Mass Index 26.25 07/09/2025 9:58 AM EST Plan of Treatment Upcoming Encounters Date Type Department Care Team (Late st Contact Info) Description 08/10/2025 10:00 AM EST Appointment [facility] - [place] [address] [place] [address] 01/01/2026 9:30 AM EDT Office Visit Endocrinology - [place] [address] [place] [phone] Joi Greene PA [address] [place] [address] 03/29/2026 9:50 AM EDT Office Visit Gastroenterology - [address] [facility] [address] [place] [phone] Iris Nayak PA [address] [facility] [address] [place] [address] 05/26/2026 10:00 AM EDT Office Visit Pulmonology - [place] [address] [facility] [address] [place] [phone] Laureen Gutierres MD [address] [place] [phone] Health Maintenance Due Date Last Done Comments Drug Screen 1960 Non-Opioid Controlled Substance Agreement 1960 Hepatitis A Vaccines (1 of 2 - Risk 2-dose series) 1977 RSV Immunization Adult Patients (1 - Risk 50-74 years 1-dose series) 2008 Zoster Vaccines (1 of 2) 2008 Hepatitis B Vaccines (1 of 3 - Risk 3-dose series) 2018 Pneumococcal Vaccine: 50+ Years (2 of 2 - PCV) 07/03/2019 07/03/2018 Medicare Annual Wellness Visit 07/13/2022 Depression Screening 08/06/2024 06/17/2024 COVID-19 Vaccine (3 - season) 2025 01/04/2021, 12/14/2020 Influenza Vaccine (#1) 2025 9, 07/03/2018, 07/12/2017, Additional history exists Social Influencers of Health Screening 06/17/2025 06/17/2024 Hypertension/CHF/CAD Annual BMP Blood Test 01/20/2026 01/20/2025, 01/01/2025, 09/05/2024, Additional history exists Falls Risk Assessment 02/02/2026 02/02/2025, 024 Colorectal Cancer Screening: Colonoscopy 02/15/2026 02/15/2021 Lung Cancer Screening (Low Dose CT) 06/23/2026 06/23/2025 Breast Cancer Screening 01/29/2027 01/30/20, 01/17/2024, 01/17/2024, Additional history exists Cholesterol Screening (Lipid Panel) 01/01/2030 01/01/2025, 09/05/2024, 02/25/2024, Additional history exists DTaP,Tdap,and Td Vaccines (4 - Td or Tdap) 09/11/2034 09/11/2024, 02/09/2010, 11/27/1999 Osteoporosis Screening (Bone Density Screening) 12/12/2034 12/12/2024 Hepatitis C Screening Completed 01/12/2017 HIB Vaccines Aged Out No longer eligi ble based on patient's age to complete this topic HPV Vaccines Aged Out No longer eligi ble based on patient's age to complete this topic IPV Vaccines Aged Out No longer eligi ble based on patient's age to complete this topic MMR Vaccines Aged Out No longer eligi ble based on patient's age to complete this topic Meningococcal ACWY Vaccine Aged Out N o longer eligible based on patient's age to complete this topic Meningococcal B Vaccine Aged Out No l onger eligible based on patient's age to complete this topic RSV Immunization Patients Under 20 months Aged Out No longer eligible based on patient's age to complete this topic Varicella Vaccines Aged Out No longer eligible based on patient's age to complete this topic Procedures Procedure Name Priority Date/Time Associated Diagnosis Comments CT LUNG SCREENING Routine 06/23/2025 1:2 6 PM EST Encounter for screening for malignant neoplasm of respiratory organs Nicotine dependence, cigarettes, uncomplicated MG MAMMO DIGITAL SCREENING W MEKHI BILAT Routine 01/29/2025 10:24 AM EDT Encounter for screening mammogram for breast cancer CREATININE, SERUM Routine 01/20/2025 9:3 4 AM EDT Osteoporosis, unspecified osteoporosis type, unspecified pathological fracture presence LIPID PANEL WITH REFLEX TO DIRECT LDL Routine 01/01/2025 11:22 AM EDT BMI 25.0-25.9,adult Overweight BD BONE DENSITY DXA AXIAL SKELETON Routine 12/12/2024 10:18 AM EDT Osteoporosis screening HM COLONOSCOPY Routine 02/15/2021 HEPATITIS C SCREENING Routine 01/12/2017 from Last 3 Months or Most Recently Relevant to Health Maintenance Results * CT Lung Screening (06/23/2025 1:26 PM EST) Anatomical Region Laterality Modality Chest Computed Tomogra phy 06/29/2025 4:10 PM EST Impressions 06/29/2025 4:24 PM EST Impression: New 5 mm solid left upper lobe nodule, for which a follow-up low-dose CT is recommended in 3 months. Lung-RADS Category: Lung-RADS 3: Probably benign nodule(s). Recommend follow up with Low Dose Chest CT in 6 months. Telerad KORIN ([id number]) -------- FINAL REPORT -------- Dictated By: Olimpia Hobbs Dictated Date: 06/29/2025 16:10 ET Assigned Physician: Olimpia Hobbs Reviewed and Electronically Signed By: Olimpia Hobbs Signed Date: 06/29/2025 16:24 ET Workstation ID: [id number] Transcribed By: Self Edit Transcribed Date: 06/29/2025 16:10 ET Narrative 06/29/2025 4:24 PM EST History: 64 year-old 24 pack-year current smoker, asymptomatic, for lung cancer screening. Comparison: Thoracic CTA 06/23/10 Technique: Helical volumetric imaging of the thorax was performed, using low- dose technique, without IV contrast. DLP: 166.76 mGy/cm CTDIvol: 4.83 mGy CytoLogic VCT Iterative reconstruction technique Findings: Lungs and Airways: Note: A small sliver of both lung bases is excluded from the [id number] due to technologist error. The trachea and central bronchial tree remain patent. A 5 mm solid, noncalcified nodule is new in the left upper lobe (image 50 series 3). Stable nodules include a 3 mm solid right middle lobe nodule (image 177 series 3), a 3 mm subsolid right upper lobe nodule (image 50), and a 2 mm left upper lobe nodule (image 72). Pleura: No pleural or pericardial effusions are seen. Base of neck, mediastinum and heart: The heart is normal in size. Moderate coronary artery calcification is noted. The included portions of the thyroid gland are unremarkable. No thoracic lymphadenopathy is seen. Soft tissues: The overlying soft tissues are unremarkable. Abdomen: This study was performed without contrast and with lower than standard dose. These factors reduce the sensitivity for detection of small lesions in the upper abdomen. No significant abnormality is seen. Procedure Note Olimpia Hobbs MD - 06/29/2025 History: 64 year-old 24 pack-year current smoker, asymptomatic, for lungcancer screening. Comparison: Thoracic CTA 06/23/10 Technique: Helical volumetric imaging of the thorax was performed, usinglow-dose technique, without IV contrast. DLP: 166.76 mGy/cm CTDIvol: 4.83 mGy NitronexT Iterative reconstruction technique Findings: Lungs and Airways: Note: A small sliver of both lung bases is excluded from the [id number]-jlrxhle to technologist error. The trachea and central bronchial tree remain patent. A 5 mm solid, noncalcified nodule is new in the left upper lobe (image 50series 3). Stable nodules include a 3 mm solid right middle lobe nodule (image 177series 3), a 3 mm subsolid right upper lobe nodule (image 50), and a 2 mmleft upper lobe nodule (image 72). Pleura: No pleural or pericardial effusions are seen. Base of neck, mediastinum and heart: The heart is normal in size. Moderatecoronary artery calcification is noted. The included portions of thethyroid gland are unremarkable. No thoracic lymphadenopathy is seen. Soft tissues: The overlying soft tissues are unremarkable. Abdomen: This study was performed without contrast and with lower thanstandard dose. These factors reduce the sensitivity for detection of smalllesions in the upper abdomen. No significant abnormality is seen. IMPRESSION: Impression: New 5 mm solid left upper lobe nodule, for which a follow-up low-dose CTis recommended in 3 months. Lung-RADS Category: Lung-RADS 3: Probably benign nodule(s). Recommendfollow up with Low Dose Chest CT in 6 months. Telerad PA ([id number]) -------- FINAL REPORT -------- Dictated By: Olimpia Hobbs Dictated Date: 06/29/2025 16:10 ET Assigned Physician: Olimpia Hobbs Reviewed and Electronically Signed By: Olimpia Hobbs Signed Date: 06/29/2025 16:24 ET Workstation ID: [id number] Transcribed By: Self Edit Transcribed Date: 06/29/2025 16:10 ET Igor Holbrook MD IMG CT PROCEDURES Final Result * MG Mammo Digital Screening w Mekhi bilat (01/29/2025 10:24 AM EDT) Anatomical Region Laterality Modality Breast Bilateral Mammography 01/29/2025 5:47 PM EDT Impressions 01/29/2025 5:50 PM EDT 1. No mammographic evidence of malignancy 2. Scattered fibroglandular tissue BI-RADS CATEGORY: 2 - BENIGN RECOMMENDATION: Screening bilateral mammogram is recommended in 1 year. Mammo Location: [facility], [address] [place] [address], [id number], . -------- FINAL REPORT -------- Dictated By: Jessica Gonzalez Dictated Date: 01/29/2025 17:47 ET Assigned Physician: Jessica Gonzalez Reviewed and Electronically Signed By: Jessica Gonzalez Signed Date: 01/29/2025 17:50 ET Workstation ID: [id number] Transcribed By: Self Edit Transcribed Date: 01/29/2025 17:47 ET Narrative 01/29/2025 5:50 PM EDT A BILATERAL DIGITAL 3D SCREENING MAMMOGRAPHY HISTORY: Routine screening. Family history of breast cancer in sister. COMPARISON: Multiple priors dating back to 11/12/2020 Technique: Bilateral full field digital mammography (3D) was performed using standard CC and MLO projections CAD was used to evaluate this mammogram. FINDINGS: Right: No suspicious masses, groups of microcalcification or areas of architectural distortion identified. Stable typically benign parenchymal asymmetries. Left: No suspicious masses, groups of microcalcification or areas of architectural distortion identified. Stable typically benign parenchymal asymmetries. BREAST DENSITY: B - There are scattered areas of fibroglandular density. Procedure Note Jessica Gonzalez MD - 01/29/2025 A BILATERAL DIGITAL 3D SCREENING MAMMOGRAPHY HISTORY: Routine screening. Family history of breast cancer in sister. COMPARISON: Multiple priors dating back to 11/12/2020 Technique: Bilateral full field digital mammography (3D) was performedusing standard CC and MLO projections CAD was used to evaluate this mammogram. FINDINGS: Right: No suspicious masses, groups of microcalcification or areas ofarchitectural distortion identified. Stable typically benign parenchymalasymmetries. Left: No suspicious masses, groups of microcalcification or areas ofarchitectural distortion identified. Stable typically benign parenchymalasymmetries. BREAST DENSITY: B - There are scattered areas of fibroglandular density. IMPRESSION: 1. No mammographic evidence of malignancy 2. Scattered fibroglandular tissue BI-RADS CATEGORY: 2 - BENIGN RECOMMENDATION: Screening bilateral mammogram is recommended in 1 year. Mammo Location: [facility], [address] [place] [address], [id number], . -------- FINAL REPORT -------- Dictated By: Jessica Gonzalez Dictated Date: 01/29/2025 17:47 ET Assigned Physician: Jessica Gonzalez Reviewed and Electronically Signed By: Jessica Gonzalez Signed Date: 01/29/2025 17:50 ET Workstation ID: [id number] Transcribed By: Self Edit Transcribed Date: 01/29/2025 17:47 ET Mahamed Ahn MD [facility] [place]ED[place] Final Result * Creatinine, Serum (01/20/2025 9:34 AM EDT) Creatinine 0.68 0.50 - 1.10 mg/dL LAB CHEMISTRY METHOD 01/20/2025 3:31 PM EDT [facility] eGFR 96 >=60 mL/min/1. 73m2 LAB CHEMISTRY METHOD 01/20/2025 3:31 PM EDT [facility] Comment:Calculation based on the Chronic Kidney Disease Epidemiology Collaboration (CKD-EPI) equation refit without adjustment for race. Blood Venous blood specimen / Unknown Venipuncture / Unknown 01/20/2025 9:34 AM EDT 01/20/2025 9:34 AM EDT us Joi LANGLEY LAB BLOOD ORDERABLES Final Result Performing Organization Address City/[facility]/ZIP Co de Phone Number [facility] [address] [place] [address], [place] [phone] * (ABNORMAL) Lipid panel with reflex to direct LDL (01/01/2025 11:22 AM EDT) Cholesterol 196 0 - 200 mg/dL LAB CHEMISTRY METHOD 01/01/2025 1:57 PM EDT [facility] Triglycerides 207(H) 0 - 150 mg/dL LAB CHEMISTRY METHOD 01/01/2025 1:57 PM EDT [facility] HDL 42 >=40 mg/dL LAB CHEMISTRY METHOD 01/01/2025 1:57 PM EDT [facility] LDL Calculated 113(H) 0 - 100 mg/dL LAB CHEMISTRY METHOD 01/01/2025 1:57 PM EDT [facility] VLDL Cholesterol Javier 41.4 mg/dL LAB CHEMISTRY METHOD 01/01/2025 1:57 PM EDT [facility] Non HDL Chol. (LDL+VLDL) 154(H) <145 mg/dL LAB CHEMISTRY METHOD 01/01/2025 1:57 PM EDT [facility] Chol/HDL Ratio 4.7(H) 0.0 - 4.4 LAB CHEMISTRY METHOD 01/01/2025 1:57 PM EDT [facility] Blood Venous blood specimen / Unknown Venipuncture / Unknown 01/01/2025 11:22 AM EDT 01/01/2025 11:22 AM EDT us Mindi Gaston [employer] LAB BLOOD ORDERABLES Final R esult [facility] [address] [place] [address], * BD Bone Density DXA Axial Skeleton (12/12/2024 10:18 AM EDT) Anatomical Region Laterality Modality Wrist, Hip, L-spine Bone Densito metry 12/13/2024 6:46 PM EDT Impressions 12/13/2024 6:47 PM EDT Impression: Osteoporosis by WHO criteria. The [facility] recommends using National Osteoporosis Foundation (NOF) guidelines in treatment decisions related to osteoporosis. NOF guidelines suggest considering treatment for postmenopausal women and men aged 50 or older presenting with the following: History of hip or vertebral fracture. T-score = -2.5 (DXA) at the femoral neck, total hip, or spine, after appropriate evaluation to exclude secondary causes. Low bone mass (T-score between -1.0 and -2.5 at the femoral neck or spine) AND a 10-year probability of a hip fracture = 3% OR a 10-year probability of a major osteoporosis-related fracture = 20% based on the [place]-adapted WHO algorithm Please note that all treatment decisions require clinical judgment and consideration of individual patient factors, including patient preferences, co-morbidities, previous drug use, risk factors not captured in the FRAX model (e.g., frailty, falls, vitamin D deficiency, increased bone turnover, interval significant decline in bone density) and possible under- or over-estimation of fracture risk by FRAX. Optional alternative screening schedule based on jorge Grubbs., [facility] August 24, 2011 for patients with osteopenia (based on hip BMD T-score) is as follows: * advanced osteopenia (T scores -2.00 to -2.49), BMD testing every year * moderate osteopenia (T scores -1.50 to -1.99), BMD testing every 5 years mild osteopenia or normal BMD (T scores -1.50 and higher), BMD testing every 15 years -------- FINAL REPORT -------- Dictated By: Krystal Marcus Dictated Date: 12/13/2024 18:46 ET Assigned Physician: Krystal Marcus Reviewed and Electronically Signed By: Krystal Marcus Signed Date: 12/13/2024 18:47 ET Workstation ID: [id number] Transcribed By: Self Edit Transcribed Date: 12/13/2024 18:46 ET Narrative 12/13/2024 6:47 PM EDT BONE DENSITY (DEXA) Lumbar Spine T-score is -3.7. (SD relative to 20-29 y/o adult) Z-score is -1.9. (SD relative to age matched peers) This is considered osteoporosis by WHO criteria. Left Hip T-score is -3.7. Z-score is -2.1. This is considered osteoporosis by WHO criteria. Comparison exam(s): Not available. Procedure Note Krystal Marcus MD - 12/13/2024 BONE DENSITY (DEXA) Lumbar Spine T-score is -3.7. (SD relative to 20-29 y/o adult) Z-score is -1.9. (SD relative to age matched peers) This is considered osteoporosis by WHO criteria. Left Hip T-score is -3.7. Z-score is -2.1. This is considered osteoporosis by WHO criteria. Comparison exam(s): Not available. IMPRESSION: Impression: Osteoporosis by WHO criteria. The [facility] recommendsusing National Osteoporosis Foundation (NOF) guidelines in treatmentdecisions related to osteoporosis. NOF guidelines suggest consideringtreatment for postmenopausal women and men aged 50 or older presentingwith the following: History of hip or vertebral fracture. T-score = -2.5 (DXA) at the femoral neck, total hip, or spine, afterappropriate evaluation to exclude secondary causes. Low bone mass (T-score between -1.0 and -2.5 at the femoral neck or spine)AND a 10-year probability of a hip fracture = 3% OR a 10-year probabilityof a major osteoporosis-related fracture = 20% based on the [place]-adapted WHOalgorithm Please note that all treatment decisions require clinical judgment andconsideration of individual patient factors, including patientpreferences, co-morbidities, previous drug use, risk factors not capturedin the FRAX model (e.g., frailty, falls, vitamin D deficiency, increasedbone turnover, interval significant decline in bone density) and possibleunder- or over-estimation of fracture risk by FRAX. Optional alternative screening schedule based on jorge Grubbs., NEJMJanuary 2011 for patients with osteopenia (based on hip BMD T-score)is as follows: * advanced osteopenia (T scores -2.00 to -2.49), BMD testing every year * moderate osteopenia (T scores -1.50 to -1.99), BMD testing every 5years mild osteopenia or normal BMD (T scores -1.50 and higher), BMD testingevery 15 years -------- FINAL REPORT -------- Dictated By: Krystal Marcus Dictated Date: 12/13/2024 18:46 ET Assigned Physician: Krystal Marcus Reviewed and Electronically Signed By: Krystal Marcus Signed Date: 12/13/2024 18:47 ET Workstation ID: [id number] Transcribed By: Self Edit Transcribed Date: 12/13/2024 18:46 ET Ozzie LANGLEY IMG DXA PROCEDURES Yessy l Result * Colonoscopy (02/15/2021) Colonoscopy No Interpretation , Abstracted Anatomical Region Laterality Modality Other Historical Provider HEALTH MAINTENANCE Final Result * Hepatitis C Screening (01/12/2017) Pathologist [facility] Hepatitis C Screening Abstracted Historical Provider HEALTH MAINTENANCE Final Result from Last 3 Months or Most Recently Relevant to Health Maintenance Insurance MEDICARE [facility] Care Teams Experimental Display Builder Relationship Specialty Start Date End Date Mahamed Ahn MD [address] [place] [id number] PCP - General Internal Medicine 06/08/24
== END 2025-07-22 10:10 | disposition home or self-care (01) ==
LOC: HO.HSM 09:45
PROVIDERS: PCP Internal Medicine; Referring Provider Internal Medicine; Visit Provider Registered Nurse
DX: M43.6 Torticollis (principal); G25.0 Essential tremor
CPT/HCPCS: 99214

== ENCOUNTER → 2025-07-22 09:44 | Outpatient (BNVA) | payer MEDICARE, OTHER, SELFPAY | PROVIDERS: PCP Internal Medicine; Referring Provider Internal Medicine; Visit Provider Registered Nurse | DX: G25.0 Essential tremor (principal); M43.6 Torticollis | CPT/HCPCS: 99212 ==